=== PATIENT | female | born 1980 | race Hispanic/Latino ===

== ENCOUNTER 2018-08-01 22:58 | Emergency (ER) | payer OTHER ==
[~2018-08-01] VITALS: Ht 154.9 cm; Wt 58.1 kg
--- OUTSIDE RECORDS SUMMARY | 2018-08-01 23:01 | XMS REPORT | Clinical Summary ---
Author Author [facility] Address Unknown Phone Unavailable Care Team Providers [place] Mobile Radio Technician Name Role Phone Radu Mijares PCP Allergies Not on File Medications Not on file Active Problems Not on file Social History Date Tobacco Use Types Packs/Day Years Used Never Assessed Sex Assigned at Date Recorded Not on file Industry Job Start Date Occupation Not on file Not on file Not on file Travel End Travel History Travel Start No recent travel history available. Last Filed Vital Signs Not on file Plan of Treatment Not on file Results Not on fileafter 07/31/2017 Insurance Payer Benefit Subscriber ID Type Phone Address Plan / Group BLUE CROSS/[employer]UE [employer] BCBS PPO xxxxxxxxxxxx PPO [phone] [id number] [place] [address] CHOICE
--- OUTSIDE RECORDS SUMMARY | 2018-08-01 23:01 | XMS REPORT | Clinical Summary ---
Author Author [facility] Address Unknown Phone Unavailable Care Team Providers Care Order Detailer Name Role Phone Radu Mijares MD PCP Allergies Active Allergy Reactions Severity Noted Date Comments Hydrocodone GI Intolerance 10/10/2016 Nausea Other pain medicines have the same effect. Current Medications Prescription Sig. Disp. Refills Start End Date Status Date dextroamphetamine-ampheta TAKE 1 TABLET TWICE A DAY 0 09/28/19 Active mine (ADDERALL) 10 mg ORALLY 30 DAYS 17 tablet GALEN 0.35 mg tablet Take 1 tablet by mouth 3 08/04/20 Active once daily. 16 betamethasone valerate APPLY TOPICALLY TWICE A 3 09/18/20 Active 0.12 % foam DAY NEEDED 17 BOTOX 100 unit recon soln 10/02/19 Active 18 sertraline (ZOLOFT) 50 MG 10/08/19 Active tablet 18 spironolactone Take 25 mg by mouth 3 09/09/20 Active (ALDACTONE) 25 MG tablet daily. 17 valACYclovir (VALTREX) Take 500 mg by mouth 2 09/17/20 Active 500 MG tablet daily. 17 Active Problems Problem Noted Date Radial styloid tenosynovitis of right hand 03/22/2017 Encounters Date Type Specialty Care Team Description 10/12/2017 Office Visit Sports Medicine Radu Mijares MD Well adult exam (Primary Dx); Weight gain after 07/31/2017 Family History Medical History Relation Name Comments Hyperlipidemia Father Anxiety disorder Mother Cardiomyopathy Mother Hypertension Mother Relation Name Status Comments Father Mother Social History Tobacco Use Types Packs/Day Years Used Date Never Smoker Smokeless Tobacco: Never Used Alcohol Use Drinks/Week oz/Week Comments Yes 1-2 Standard 0.6 - 1.2 per month drinks or equivalent Sex Assigned at Date Recorded Not on file Last Filed Vital Signs Vital Sign Reading Time Taken Blood Pressure 97/56 10/12/2017 10:19 AM GYM ATTENDANT Pulse 77 10/12/2017 10:19 AM GYM ATTENDANT Temperature 35.9 C (96.7 F) 10/12/2017 10:19 AM GYM ATTENDANT Respiratory Rate 12 10/12/2017 10:19 AM GYM ATTENDANT Oxygen Saturation - - Inhaled Oxygen - - Concentration Weight 54.3 kg (119 lb 12.8 oz) 10/12/2017 10:19 AM GYM ATTENDANT Height 156.2 cm (5' 1.5") 10/12/2017 10:19 AM GYM ATTENDANT Body Mass Index 22.27 10/12/2017 10:19 AM GYM ATTENDANT Plan of Treatment Health Maintenance Due Date Last Done Comments CERVICAL CANCER SCREENING 2003 INFLUENZA VACCINE 04/24/2018 Procedures Procedure Name Priority Date/Time Associated Diagnosis Comments LIPID PANEL Routine 10/15/2017 Well adult exam Results for this 7:35 AM GYM ATTENDANT Weight gain procedure are in the results section. TSH REFLEX TO T4F Routine 10/15/2017 Well adult exam Results for this 7:35 AM GYM ATTENDANT Weight gain procedure are in the results section. CBC WITH PLATELET AND Routine 10/15/2017 Well adult exam Results for this DIFFERENTIAL 7:35 AM GYM ATTENDANT Weight gain procedure are in the results section. COMPREHENSIVE METABOLIC Routine 10/15/2017 Well adult exam Results for this PANEL 7:35 AM GYM ATTENDANT Weight gain procedure are in the results section. HEMOGLOBIN A1C Routine 10/15/2017 Well adult exam Results for this 7:35 AM GYM ATTENDANT Weight gain procedure are in the results section. after 07/31/2017 Results * TSH reflex to T4 (10/15/2017 7:35 AM) TSH reflex to FT4 1.94 mIU/L [facility] Comment: [employer] Reference Range > or=20 Years0.40-4.50 Ranges First trimester0.26-2.66 Second trimester 0.55-2.73 Third trimester0.43-2.91 Specimen Blood Other Results Text Performing Organization Information: Site ID: [id number] Name: [facility] Address: [address] [place] [id number] Director: Perlita Weiss MD Performing Organization Address City/State/Zipcode Phone Number [facility] [address] [address] * CBC with platelet and differential (10/15/2017 7:35 AM) WBC 6.1 3.8 - 10.8 Thousand/uL [facility] RBC 4.45 3.80 - 5.10 Million/uL [facility] HGB 14.0 11.7 - 15.5 g/dL [facility] HCT 42.7 35.0 - 45.0 % [facility] [employer] MCV 96.0 80.0 - 100.0 fL [facility] [employer] MCH 31.5 27.0 - 33.0 pg [facility] [employer] MCHC 32.8 32.0 - 36.0 g/dL [facility] [employer] RDW 13.0 11.0 - 15.0 % [facility] [employer] Platelet count 319 140 - 400 Thousand/uL [facility] MPV 10.5 7.5 - 12.5 fL [facility] [employer] Neutrophils, absolute 3,495 1,500 - 7,800 cells/uL [facility] [employer] Lymphocytes, absolute 2,105 850 - 3,900 cells/uL [facility] [employer] Monocytes, absolute 421 200 - 950 cells/uL [facility] [employer] Eosinophils, absolute 61 15 - 500 cells/uL [facility] [employer] Basophils, absolute 18 0 - 200 cells/uL [facility] [employer] Neutrophils 57.3 % [facility] [employer] Lymphocytes 34.5 % [facility] [employer] Monocytes 6.9 % [facility] [employer] Eosinophils 1.0 % [facility] [employer] Basophils + RC 0.3 % [facility] [employer] Specimen Blood Other Results Text Performing Organization Information: Site ID: [id number] Name: [facility] Address: [address] [place] [id number] Director: Perlita Weiss MD Performing Organization Address City/State/Zipcode Phone Number [place] [phone] * Hemoglobin A1c (10/15/2017 7:35 AM) Hemoglobin A1C 4.9 <5.7 % of total Hgb [facility] Comment: [employer] For the purpose of screening for the presence of diabetes: <5.7% Consistent with the absence of diabetes 5.7-6.4%Consistent with increased risk for diabetes (predi abetes) > or=6.5%Consistent with diabetes This assay result is consistent with a decreased risk of diabetes. Currently, no consensus exists regarding use of hemoglobin A1c for diagnosis of diabetes in children. According to [place] Diabetes Association (ADA) guidelines, hemoglobin A1c <7.0% represents optimal control in non- diabetic patients. Different metrics may apply to specific patient populations. Standards of Medical Care in Diabetes(ADA). Specimen Blood Other Results Text Performing Organization Information: Site ID: [id number] Name: [facility] Address: [address] [place] [id number] Director: Perlita Weiss MD Performing Organization Address [facility] Phone Number [facility] [place] [address] * Lipid panel (10/15/2017 7:35 AM) Cholesterol, total 154 <200 mg/dL [facility] HDL cholesterol 47 (L) >50 mg/dL [facility] [employer] Triglycerides 93 <150 mg/dL [facility] LDL cholesterol 88 mg/dL (calc) [facility] calculated Comment: [employer] Reference range: <100 Desirable range <100 mg/dL for patients with CHD or diabetes and <70 mg/dL for diabetic patients with known heart disease. LDL-C is now calculated using the Enoch-Megan calculation, which is a validated novel method providing better accuracy than the Friedewald equation in the estimation of LDL-C. Enoch SS et al. KERRY. 2013;310(19): 3228-0023 (http://education.MiNOWireless/faq/SVH910) Cholesterol/HDL ratio 3.3 <5.0 (calc) [facility] [employer] Non-HDL cholesterol 107 <130 mg/dL (calc) [facility] Comment: [employer] For patients with diabetes plus 1 major ASCVD risk factor, treating to a non-HDL-C goal of <100 mg/dL (LDL-C of <70 mg/dL) is considered a therapeutic option. Specimen Blood Other Results Text Performing Organization Information: Site ID: [id number] Name: [facility] Address: [address] [place] [phone] Director: Perlita Weiss MD Performing Organization Address [facility] Phone Number [facility] [address] [phone] * Comprehensive metabolic panel (10/15/2017 7:35 AM) Glucose 75 65 - 99 mg/dL [facility] Comment: [employer] Fasting reference interval BUN, whole blood 14 7 - 25 mg/dL [facility] Creatinine 0.68 0.50 - 1.10 mg/dL [facility] [employer] EGFR Non-Afr. [place] 113 > OR=60 mL/min/1.73m2 [facility] [employer] EGFR 131 > OR=60 mL/min/1.73m2 [facility] [employer] BUN/creatinine ratio NOT APPLICABLE 6 - 22 (calc) [facility] Sodium 140 135 - 146 mmol/L [facility] [employer] Potassium 4.5 3.5 - 5.3 mmol/L [facility] [employer] Chloride 107 98 - 110 mmol/L [facility] [employer] CO2 24 20 - 31 mmol/L [facility] [employer] Calcium 9.2 8.6 - 10.2 mg/dL [facility] [employer] Protein 6.9 6.1 - 8.1 g/dL [facility] [employer] Albumin, S 4.2 3.6 - 5.1 g/dL [facility] [employer] Globulin, total 2.7 1.9 - 3.7 g/dL (calc) [facility] Albumin/globulin ratio 1.6 1.0 - 2.5 (calc) [facility] Total bilirubin 0.5 0.2 - 1.2 mg/dL [facility] Alkaline phosphatase 46 33 - 115 U/L [facility] AST 11 10 - 30 U/L [facility] ALT 9 6 - 29 U/L [facility] [employer] Specimen Blood Other Results Text Performing Organization Information: Site ID: [id number] Name: [facility] Address: [address] [place] [id number] Director: Perlita Weiss MD Performing Organization Address City/State/Zipcode Phone Number [facility] [address] [place], [place] [phone] after 07/31/2017 Insurance Payer Benefit Subscriber ID Type Phone Address Plan / Group CIGNIDIA CIGN[employer]IA OPEN xxxxxxxxxxx HMO ACCESS/NET WORK
[2018-08-01] MEDS ORDERED: TRAMADOL HCL 50 MG TAB PO ONE (23:15)
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
[2018-08-01 23:58] LABS: CLARITY,URINE CLOUDY (CLEAR); COLOR,URINE YELLOW (YELLOW); LEUKOCYTE ESTERASE ,URINE 1+ (NEGATIVE)
[2018-08-01 23:59] LABS: BILIRUBIN,URINE NEGATIVE (NEGATIVE); KETONES,URINE NEGATIVE (NEGATIVE); NITRITE,URINE NEGATIVE (NEGATIVE); PREGNANCY TEST, URINE NEGATIVE (NEGATIVE); PROTEIN,URINE DIPSTICK NEGATIVE (NEGATIVE); URINE UROBILINOGEN 0.2 mg/dL (0.2 - 1)
[2018-08-02 00:09] LABS: WBC,URINE (MAN) 21-50 /HPF (0-5)
[2018-08-02 00:10] LABS: BACTERIA,URINE MODERATE /HPF; EPITHELIAL CELLS,URINE FEW /LPF; MUCUS,URINE FEW (RARE); TRANSITIONAL EPI CELLS,URINE FEW
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
== END 2018-08-02 00:44 | disposition home or self-care (01) ==
LOC: ER 22:58
DX: S52.321A Displaced transverse fracture of shaft of right radius, initial encounter for closed fracture (principal); R07.89 Other chest pain; S20.212A Contusion of left front wall of thorax, initial encounter; S30.1XXA Contusion of abdominal wall, initial encounter; S80.11XA Contusion of right lower leg, initial encounter; V47.5XXA Car driver injured in collision with fixed or stationary object in traffic accident, initial encounter; Y92.488 Other paved roadways as the place of occurrence of the external cause; N30.91 Cystitis, unspecified with hematuria
CPT/HCPCS: 71046; 81001; 81025; 99283